=== PATIENT | male | born 1980 | race Two or more races ===

== ENCOUNTER 2022-10-27 20:11 | Emergency (ER) | payer MEDICAID ==
[~2022-10-27] VITALS: Ht 160 cm; Wt 72.7 kg
[2022-10-27] MEDS ORDERED: FAMOTIDINE 10 MG/ML 2 ML VIAL IVP ONE (22:45)
[2022-10-27] MEDS ORDERED: KETOROLAC TROMETHAMINE 30 MG/ML VIAL IVP ONE (22:45)
[2022-10-27] MEDS ORDERED: MAG HYDROX/AL HYDROX/SIMETH 30 ML SUSP UDCUP PO ONE (22:45)
[2022-10-27] MEDS ORDERED: SODIUM CHLORIDE 0.9% 1,000 ML IV ONE (22:45)
[2022-10-27 23:11] LABS: BASOPHILS % (AUTO) 0.3 % (0.0-2.0); EOSINOPHILS % (AUTO) 1.5 % (1.0-6.0); HEMATOCRIT 47.3 % (41-53); HEMOGLOBIN 16.2 g/dL (13.5-17.5); LYMPHOCYTES # (AUTO) 0.5 K/uL (1.0-4.8); LYMPHOCYTES % (AUTO) 4.3 % (22.0-44.0); MEAN CORPUSCULAR HGB CONC 34.2 G/dL (31.0-37.0); MEAN CORPUSCULAR VOLUME 91 fL (80-100); MONOCYTES # (AUTO) 0.7 K/uL (0.1-1.0); MONOCYTES % (AUTO) 5.8 % (2.0-9.0); NEUTROPHILS # (AUTO) 10.9 K/uL (1.8-7.7); NEUTROPHILS % (AUTO) 88.1 % (40.0-70.0); PLATELET COUNT (AUTO) 208 K/uL (150-450); RED BLOOD CELL COUNT(AUTO) 5.22 MIL/uL (4.50-5.90)
[2022-10-27 23:18] LABS: ANION GAP 8 mmol/L (8-16); CARBON DIOXIDE 28 mmol/L (22-29); CHLORIDE 103 mmol/L (98-107); CREATININE 0.98 mg/dL (0.60-1.30); GLOMERULAR FILTR. RATE CALC > 60 mL/min (>60); GLUCOSE,RANDOM 119 mg/dL (70-110); POTASSIUM 4.4 mmol/L (3.5-5.1); SODIUM SERUM 139 mmol/L (136-145); UREA NITROGEN, BLOOD 18 mg/dL (7-18)
[2022-10-27 23:24] LABS: PLATELET MORPHOLOGY COMMENT LARGE PLTS PRESENT
[2022-10-27 23:25] LABS: ALANINE AMINOTRANSFERASE 64 U/L (12-78); ALBUMIN 4.4 g/dL (3.4-5.0); ALKALINE PHOSPHATASE 82 U/L (46-116); ASPARTATE AMINOTRANSFERASE 30 U/L (15-37); LIPASE 77 U/L (73-393); TOTAL PROTEIN, SERUM 8.7 g/dL (6.4-8.2)
[2022-10-27] MEDS ORDERED: SODIUM CHLORIDE 0.9% 100 ML ONE (23:58)
[2022-10-27] MEDS ORDERED: IOHEXOL 350 MG/ML 100 ML VIAL ONE (23:58)
[2022-10-28 02:16] VITALS: BP 129/68
[2022-10-28] MEDS ORDERED: AMOX TR/POT CLAV 875 MG/125 MG TABLET PO ONE (03:30)
[2022-10-28] MEDS ORDERED: AMOX1TAB16 PO (03:32)
== END 2022-10-28 03:39 | disposition home or self-care (01) ==
LOC: EMS 20:23
DX: K52.9 Noninfective gastroenteritis and colitis, unspecified (principal)
CPT/HCPCS: 99285; 74177; 96374; 96361; 96375; 80053; 83690; 85025; 36415; G0480; J3490; J1885; Q9967; J7030; J7050